=== PATIENT | male | born 1965 | race African-American/Black ===

== ENCOUNTER 2021-09-29 10:52 | Emergency (ER) | payer OTHER, SELFPAY ==
[2021-09-29 11:04] VITALS: BP 147/99; PULSE 91; RESP 18; TEMP 36.9; O2SAT 100
--- NOTE | 2021-09-29 11:04 | ED.GENADULT ---
HPI - General Adult General Chief complaint: Medical Clearance Stated complaint: Shortness of Breath,High Blood Pressure Time Seen by Provider: 09/29/21 11:04 Source: patient Mode of arrival: ambulatory Limitations: no limitations History of Present Illness HPI narrative: 55 yo M presents with c/o that while driving this AM he had dizziness, very mild SOB and L arm pain. Only lasted a few minutes. drove to gas station and got himself a drink and banana and then felt better. States he had not had breakfast yet. Having no symptoms at this time. Has been on vacation from work for several days. has had more time to monitor his BP. noticed that it has been high. Came to [facility] today to have BP checked. Has appt with PCP in october. Reports similar episode of dizziness 6 months ago. had heart checked and was told he was fine. All systems reviewed and negative except as noted above. Related Data Home Medications Medication Instructions Recorded Confirmed atorvastatin 40 mg tablet 40 mg PO DAILY 09/29/21 09/29/21 hydrochlorothiazide 12.5 mg tablet 12.5 mg PO DAILY 09/29/21 09/29/21 hydroxyzine HCl 25 mg tablet 25 mg PO DAILY 09/29/21 09/29/21 Allergies Allergy/AdvReac Type Severity Reaction Status Date / Time No Known Allergies Allergy Verified 07/23/11 16:52 Review of Systems Review of Systems: CONSTITUTIONAL: Denies fever, chills, or sweats. EYES: Denies visual changes, redness, or discharge. ENT: Denies rhinorrhea, congestion, sore throat, or otalgia. CARDIOVASCULAR: Denies chest pain, palpitations, or edema. Reports left arm pain. RESPIRATORY: Denies cough. Reports GASTROINTESTINAL: Denies abdominal pain, nausea, vomiting, or diarrhea. GENITOURINARY: Denies dysuria or hematuria. SKIN: Denies rash or itching. MUSCULOSKELETAL: Denies back pain, joint pain, or myalgia. NEUROLOGIC: Denies headache, numbness, or weakness. Reports dizziness. PSYCHIATRIC: Denies anxiety or depression. All other systems reviewed are negative, except as documented in HPI. [facility] Family History Family History (Updated 11/27/13 @ 07:13 by DOCTOR UNKNOWN) Mother Family history of malignant neoplasm of ovary Father Family history of heart disease in male family member before age 55 Family history of coronary artery disease Other Hypertension Social History Social History Alcohol intake: never Comments Patient is aware of diagnosis, understands and agrees to treatment plan. Anticipatory guidance given. Patient agrees to follow-up as directed and is aware of reasons to seek care at the emergency department. Portions of this record may have been created with voice recognition software Exam Narrative: GENERAL: This is a well-nourished, well-developed patient, in no apparent distress. HEAD: normocephalic, atraumatic. EYES: PERRL. Sclera clear/white. Vision is grossly intact. EARS: External ears normal, auditory canals clear and without drainage, TMs normal without perforation. Hearing grossly intact. NOSE: External nose normal with no obvious nasal discharge, nares without redness, no rhinorrhea. THROAT: Mucous membranes moist, posterior pharynx clear. NECK: Neck supple, non-tender without lymphadenopathy, masses or thyromegaly. CARDIOVASCULAR: Regular rate and rhythm without murmurs, gallops, or rubs. RESPIRATORY: Clear to auscultation. Breath sounds equal bilaterally. No wheezes, rales, or rhonchi. SKIN: warm, Dry, intact with no suspicious lesions or rash, good texture and turgor. NEURO: awake, alert, and oriented to person, place and time. There were no obvious focal neurologic abnormalities. EXTREMITIES: No joint tenderness, effusion, or edema noted. Course Course Level of Care: Express Care Visit Vital Signs Vital signs: Vital Signs Temperature 36.9 C 09/29/21 11:04 Pulse Rate 91 09/29/21 11:04 Respiratory Rate 18 09/29/21 11:04 Blood Pressure 147/99 H 09/29/21 11:04 Pulse Oximetry 100 06/3
--- NOTE | 2021-09-29 11:27 | ECG_ITS ---
Measurements Intervals [place] Rate: 85 P: 34 WI: 174 QRS: -11 QRSD: 108 T: 44 QT: 368 QTc: 439 Interpretive Statements SINUS RHYTHM POSSIBLE RIGHT VENTRICULAR CONDUCTION DELAY [RSR (QR) IN V1/V2] NONSPECIFIC T-WAVE ABNORMALITY NO PREVIOUS ECG AVAILABLE FOR COMPARISON Electronically Signed On 09-29-2021 18:06:34 CDT by Layla Sutton M.D.
[2021-09-29 11:38] VITALS: BP 146/92; PULSE 89; RESP 18; O2SAT 100
== END 2021-09-29 11:38 | disposition left against medical advice (07) ==
PROVIDERS: Emergency Provider Nurse Practitioner Family
DX: R42 Dizziness and giddiness (principal); E78.00 Pure hypercholesterolemia, unspecified; I10 Essential (primary) hypertension
CPT/HCPCS: 93005; 99213; G0463